=== PATIENT | male | born 1955 | race Caucasian/White ===

== ENCOUNTER → 2020-03-05 10:05 | Outpatient (BNVA) | payer BC, SELFPAY | PROVIDERS: PCP Internal Medicine; Visit Provider Urology | DX: Z76.89 Persons encountering health services in other specified circumstances (principal) ==

== ENCOUNTER → 2020-06-04 10:08 | Outpatient (BNVA) | payer BC, SELFPAY | PROVIDERS: Visit Provider Urology ==

== ENCOUNTER 2022-06-10 08:32 | Outpatient (REF) | payer MEDICARE, SELFPAY ==
[2022-06-10 18:10] LABS: Urine Cytology See Pathology rpt
== END 2022-06-10 08:33 | disposition home or self-care (01) ==
LOC: HO.LAB 08:32
PROVIDERS: Visit Provider Urology
DX: E11.69 Type 2 diabetes mellitus with other specified complication (principal); N52.1 Erectile dysfunction due to diseases classified elsewhere; R35.0 Frequency of micturition; R31.29 Other microscopic hematuria
CPT/HCPCS: 51798; 88112